=== PATIENT | male | born 1985 | race Caucasian/White ===

== ENCOUNTER 2017-12-14 21:27 | Emergency (ER) | payer SELFPAY ==
--- NOTE | 2017-12-14 22:24 | EDPHY ---
H & P Stated Complaint: increased stress anxiety Time Seen by Provider: 12/14/17 22:06 HPI/ROS: HPI The patient presents with increased stress and anxiety today. The patient has a history of attention deficit hyperactivity disorder with underlying anxiety and depression and is followed by a psychiatrist to also perform psychotherapy. He is taking Adderall, and extended release dose in the morning and an immediate release in the afternoon usually. Today he took his afternoon juice of Adderall late in the day. He then had a stressful situation in which police were called by staff at [facility] about him in his daughter. He also reports multiple stressful situations currently in his life. He denies any suicidality or homicidality. He felt that his heart was pounding and racing about 1 hr prior to arrival, this was constant and he was fearful that he was going to have a heart attack. This was associated with shortness of breath. He now feels completely better.. REVIEW OF SYSTEMS 10 systems were reviewed and negative with the exception of the elements mentioned in the history of present illness. PMHx: ADH D, history of anxiety Soc Hx: Shares custody with ex-fiance of 2-year-old child, lives in [place] PHYSICAL General Appearance: Alert, no distress Eyes: Pupils equal and round no pallor or injection ENT, Mouth: Mucous membranes moist Respiratory: There are no retractions, lungs are clear to auscultation Cardiovascular: Regular rate and rhythm Gastrointestinal: Abdomen is soft and non-tender, no masses, bowel sounds normal Neurological: A&O, moves all extremities Skin: Warm and dry, no rashes Musculoskeletal: Neck is supple non tender Extremities: symmetrical, full range of motion Psychiatric: Patient is oriented X 3, there is no agitation Source: Patient Exam Limitations: No limitations - Personal History Current Tetanus/Diphtheria Vaccine: Unsure Current Tetanus Diphtheria and Acellular Pertussis (TDAP): Unsure - Medical/Surgical History Hx Asthma: No Hx Chronic Respiratory Disease: No Hx Diabetes: No Hx Cardiac Disease: No Hx Renal Disease: No Hx Cirrhosis: No Hx Alcoholism: No Hx HIV/AIDS: No Hx Splenectomy or Spleen Trauma: No Other PMH: denies - Social History Smoking Status: Current every day smoker Constitutional: Initial Vital Signs Temperature (C) 36.4 C 12/14/17 21:42 Heart Rate 103 H 12/14/17 21:42 Respiratory Rate 18 12/14/17 21:42 Blood Pressure 127/101 H 12/14/17 21:42 O2 Sat (%) 97 12/14/17 21:42 O2 Delivery Mode Room Air Allergies/Adverse Reactions: No Known Allergies Allergy (Unverified 02/18/14 16:17) Home Medications: Medication Instructions Recorded Adderall Xr 15 mg Capsule 12/14/17 Dextroamphetamine/Amphetamine 12/14/17 [Adderall 5 mg Tablet] Medical Decision Making Differential Diagnosis: 32-year-old male with history of attention deficit hyperactivity disorder, anxiety presents with heart palpitations which have now resolved in the setting of stressful day and taking dose of Adderall. I suspect his symptoms are related to anxiety attack, they have now completely resolved. I believe the extra dose of Adderall may have contributed to his symptomatology. He has a normal heart rate and blood pressure currently, I am not concerned about AC S. I have offered him a dose of Ativan for his symptoms, however he says he is feeling so much better he does not want to take this. He says he is able to follow up with his psychiatrist in the next few days. I have encouraged this. Departure - Departure Disposition: Home, Routine, Self-Care Clinical Impression: Anxiety attack, Palpitations Condition: Good Instructions: Anxiety (ED), Anxiolysis in Adults (ED) Additional Instructions: Please avoid taking any Adderall in the afternoon or evening hours. This may be contributing to your symptoms today. I do recommend that you follow up with your psychiatrist in 1-2 days. Please return to the emergency department if you feel unsafe in any way. Referrals: Brian Hubbard MD [Medical Doctor] - As per Instructions
[2017-12-14 22:46] VITALS: BP 125/79
== END 2017-12-14 22:46 | disposition home or self-care (01) ==
DX: R00.2 Palpitations (principal); F41.9 Anxiety disorder, unspecified; F90.9 Attention-deficit hyperactivity disorder, unspecified type; F32.9 Major depressive disorder, single episode, unspecified